=== PATIENT | female | born 1965 | race Asian ===

== ENCOUNTER 2017-11-23 10:07 | Emergency (ER) | payer OTHER ==
[~2017-11-23] VITALS: Ht 157.5 cm; Wt 51.0 kg
[2017-11-23] MEDS ORDERED: NAPROXEN 500 MG TABLET PO ONE (11:30)
[2017-11-23] MEDS ORDERED: NAPROXEN 500 MG TABLET ONE (11:56)
[2017-11-23] MEDS ORDERED: HYDROcodone/APAP 5/325 TABLET ONE (12:49)
[2017-11-23 12:51] VITALS: BP 131/77
[2017-11-23] MEDS ORDERED: HYDROcodone/APAP 5/325 TABLET PO ONE (13:00)
== END 2017-11-23 13:05 | disposition home or self-care (01) ==
LOC: ED 12:59
DX: R51 Headache (principal)
CPT/HCPCS: 99283